=== PATIENT | female | born 1995 | race Caucasian/White ===

== ENCOUNTER 2022-05-25 05:30 | Day surgery (SDC) | payer BC ==
[2022-05-23 14:22] LABS: HCG,QUAL RESULT NEGATIVE (NEGATIVE)
[~2022-05-25] VITALS: Ht 165.1 cm; Wt 65.8 kg
[2022-05-25] MEDS ORDERED: ONDANSETRON HCL 4 MG/2 ML VIAL IVP ONE (07:55)
[2022-05-25] MEDS ORDERED: NS IRRIG SOLN 1000 ML IR ONE (07:55)
[2022-05-25] MEDS ORDERED: LIDOCAINE 2%, 20 ML MDV INJ ONE (07:55)
[2022-05-25] MEDS ORDERED: PROPOFOL 200MG/ 20ML VIAL (DIPRIVAN) IV ONE (07:55)
[2022-05-25] MEDS ORDERED: DEXAMETHASONE SOD PHOSPHATE 4 MG/ML VIAL IVP ONE (07:55)
[2022-05-25] MEDS ORDERED: SEVOFLURANE 15 MIN GAS INH ONE (07:55)
[2022-05-25] MEDS ORDERED: MIDAZOLAM HCL 5 MG/5 ML VIAL IVP ONE (07:55)
[2022-05-25] MEDS ORDERED: LR 1,000 ML IV.SOLN IV ONE (07:55)
[2022-05-25] MEDS ORDERED: fentaNYL CITRATE/PF 100 MCG/2 ML AMP IVP ONE (07:55)
[2022-05-25] MEDS ORDERED: LR 1,000 ML IV SCH (08:15)
[2022-05-25] MEDS ORDERED: HYDROmorphone 1 MG/ML INJ. CARTRIDGE IVP PRN ×2 (08:15)
[2022-05-25] MEDS ORDERED: MEPERIDINE HCL/PF 25 MG/ML DISP.SYRIN IVP PRN (08:15)
[2022-05-25] MEDS ORDERED: METOCLOPRAMIDE HCL 10 MG/2 ML VIAL IVP PRN (08:15)
[2022-05-25] MEDS ORDERED: IBUPROFEN 800 MG TABLET PO PRN (08:30)
[2022-05-25] MEDS ORDERED: ONDANSETRON HCL 4 MG/2 ML VIAL IVP PRN (08:30)
[2022-05-25] MEDS ORDERED: ACETAMINOPHEN/CODEINE 300 MG-30 MG TABLET PO PRN (08:30)
[2022-05-25] MEDS ORDERED: MORPHINE 4 MG INJ. 4 MG/ML VIAL IVP PRN (08:30)
[2022-05-25 09:30] VITALS: BP_SYST 96
== END 2022-05-25 10:36 | disposition home or self-care (01) ==
LOC: SDS 05:30 → SMU 05:30 → SDS 10:36
PROVIDERS: ATTEND Obstetrics & Gynecology
DX: N87.1 Moderate cervical dysplasia (principal); Z30.432 Encounter for removal of intrauterine contraceptive device; Z20.822 Contact with and (suspected) exposure to COVID-19
CPT/HCPCS: 84703; 36415 ×2; 57522; 58301; 88300; 88305; 88307; 88341; 88342; 87426; U0003; J1100; J2001; J2250; J2405; J2704; J3010; J7120